=== PATIENT | male | born 2000 | race Caucasian/White ===

== ENCOUNTER 2023-08-12 09:21 | Emergency (ER) | payer BC, SELFPAY ==
[2023-08-12 09:22] VITALS: BP 164/67; PULSE 78; RESP 16; TEMP 36.6; O2SAT 100
[2023-08-12] MEDS: KETOROLAC (*BKC) 60 MG/2 ML VIAL IM (10:34)
--- NOTE | 2023-08-12 10:35 | ED.LOWEXIN ---
HPI - Extremity Injury (Lower) General Chief Complaint: Extremity Injury, Lower Stated Complaint: L thigh pain Time Seen by Provider: 08/12/23 10:00 Source: patient Mode of arrival: ambulatory Limitations: no limitations History of Present Illness HPI Narrative: Patient is a 23 year old male who presents the ED w/ c/o left posterior thigh pain. Patient reports he was involved in a skateboarding accident on Saturday and felt a pop in his left upper posterior thigh when he went to push off with his left foot while skating. He did not fall to the ground. He c/o pain to his left posterior thigh since then, worse with movement, worse with bearing weight, full extension of leg. He has taken Tylenol once for the pain and has been using an Raman bandage with crutches. Patient denies any other pain or injury. No knee pain, hip pain, back pain. Related Data Allergies Allergy/AdvReac Type Severity Reaction Status Date / Time No Known Allergies Allergy Verified 08/12/23 09:25 Review of Systems Review of Systems: CONSTITUTIONAL: Denies fever, chills, or sweats. GASTROINTESTINAL: Denies abdominal pain, nausea, vomiting. MUSCULOSKELETAL: See HPI NEUROLOGIC: Denies headache, dizziness, numbness, or weakness. All systems reviewed & are unremarkable except as noted in HPI and below Exam Narrative: GENERAL: Well appearing, obese with BMI of 31.1, non-toxic, in no acute distress. HEAD: Normocephalic, atraumatic. RESPIRATORY: Airway patent, respirations nonlabored. CARDIOVASCULAR: Regular rate and rhythm without murmurs, rubs, or gallops. Pedal pulses easily palpable. MUSCULOSKELETAL: Moves all extremities. No gross deformities. Diffuse tenderness to palpation to left proximal posterior thigh, just below gluteal crease. No palpable muscle bulge or deformity. Sensation intact. No bruising. No significant swelling noted throughout extremity. No tenderness to lumbar spine, left hip joint, left knee joint. No lower extremity swelling. SKIN: Warm, dry, normal color. NEURO: A&O X3. Speech clear. No ataxic movements. PSYCHIATRIC: Appropriate mood and affect. Normal interaction. Course Vital Signs Vital signs: Vital Signs Temperature 97.9 F 08/12/23 09:22 Pulse Rate 78 08/12/23 09:22 Respiratory Rate 16 08/12/23 09:22 Blood Pressure 164/67 H 08/12/23 09:22 Pulse Oximetry 100 08/12/23 09:22 Oxygen Delivery Room Air 08/12/23 09:22 Temperature 98.0 F 08/12/23 11:15 Pulse Rate 89 08/12/23 11:15 Respiratory Rate 20 08/12/23 11:15 Blood Pressure 118/78 08/12/23 11:15 Pulse Oximetry 100 08/12/23 11:15 Oxygen Delivery Room Air 08/12/23 09:22 MDM - Extremity Injury (Lower) MDM Narrative Medical decision making narrative: Patient presented to ED status post skateboarding accident with pain to left proximal posterior thigh. Patient is neurovascularly intact. In no acute distress. Had not taken anything for pain prior to arrival. Exam concerning for hamstring injury/strain/partial tear. No evidence of complete tear on exam. No indication for further imaging at this time. There was no fall. No bony tenderness on exam. No knee or back pain. No other injuries from the skateboarding accident. Patient advised to continue Raman bandage, crutches, Tylenol/ibuprofen, will prescribe lidocaine patches, will refer to orthopedics for further evaluation if needed. Given return precautions. Patient in agreement with plan. Discharged in stable condition. Medical Records Attestation: I reviewed the patient's medical records. Discharge Plan Discharge Clinical Impression: Hamstring strain Qualifiers: Encounter type: initial encounter Laterality: left Qualified Code(s): S76.312A - Strain of muscle, fascia and tendon of the posterior muscle group at thigh level, left thigh, initial encounter Patient Disposition: Home, Self-Care Condition: Stable Instructions: Antibiotic Form, Hamstring Injury (ED),
[2023-08-12 11:15] VITALS: BP 118/78; PULSE 89; RESP 20; TEMP 36.7; O2SAT 100
== END 2023-08-12 11:16 | disposition home or self-care (01) ==
LOC: ANHED 10:43
PROVIDERS: Emergency Provider Physician Assistant
DX: S76.312A Strain of muscle, fascia and tendon of the posterior muscle group at thigh level, left thigh, initial encounter (principal); X50.9XXA Other and unspecified overexertion or strenuous movements or postures, initial encounter; Y93.51 Activity, roller skating (inline) and skateboarding
CPT/HCPCS: 96372; 99283; J1885

== ENCOUNTER 2023-08-19 15:26 | Outpatient (CLI) | payer BC, SELFPAY ==
--- NOTE | ~2023-08-19 | MR_ITS ---
EXAMINATION: MR hip LT wo con DATE: 08/19/2023 16:25 INDICATION: Strain of muscle, fascia and tendon at the left hip. Posterior left hip pain TECHNIQUE: Magnetic resonance imaging (MRI) of the left hip was performed without intravenous contra st. Sequences included full-field axial PD-weighted FS FSE and T1-weighted FSE, coronal of the pelvis with PD-weighted FS FSE, T2-weighted FSE and T1-weighted FSE, small field of view of the left hip w ith axial PD-weighted FS FSE, sagittal PD-weighted FS FSE, coronal PD-weighted FS FSE and coronal T2 weighted FSE. Additional radial T1-weighted FGR oriented orthogonal to the acetabular rim were obtai radha for evaluation of the labrum. COMPARISON: None FINDINGS: Bones/labrum/cartilage: Alignment is normal. No fracture, avascular necrosis or pathologic marrow replacing process. Labrum is normal. Articular cartilage is normal. Fluid: Symmetric physiologic amount of fluid within both hip joints. Soft tissues: Full-thickness tear of the proximal biceps femoris tendon occurring approximately 4.5 cm from the isc hial tuberosity origin and with approximately 2 cm distal retraction of the tear margin which is loca scarlet along the anterolateral margin of the proximal semitendinosus muscle belly. There is a minimal am ount of associated soft tissue edema suggesting this is subacute. Otherwise normal and symmetric musc le bulk and signal in the pelvis and visualized proximal thighs. The bilateral proximal hamstring ten dons as well as the bilateral iliopsoas and gluteal tendons are normal. There is a small band of soft tissue density extending anteroposteriorly along the inferomedial margin of the left ischial tuberos ity with location most consistent with an ischial bursa but without significant associated increased T2 signal suggesting scarring related to chronic bursitis. Limited evaluation of visceral organs of t he pelvis is unremarkable. No pathologically enlarged pelvic/inguinal lymphadenopathy. IMPRESSION: 1. Likely subacute full-thickness tear with 2 cm distal retraction of the left biceps femoris tendon occurring 4.5 cm distal to the ischial tuberosity origin of the tendon. Reviewed, dictated and finalized at location [facility]. [employer]
== END 2023-08-19 15:27 ==
LOC: MICIMG 15:27
PROVIDERS: PCP Orthopaedic Surgery; Visit Provider Orthopaedic Surgery
DX: S76.312A Strain of muscle, fascia and tendon of the posterior muscle group at thigh level, left thigh, initial encounter (principal); X58.XXXA Exposure to other specified factors, initial encounter
CPT/HCPCS: 73721